=== PATIENT | male | born 1970 | race Caucasian/White ===

== ENCOUNTER → 2018-07-05 | Outpatient (CLI) | payer BC ==
--- NOTE | 2018-07-05 15:35 | RADIOLOGY REPORT (SQ) ---
EXAM DESCRIPTION: MRI RT LOWER JOINT WITHOUT COMPLETED DATE/TIME: 07/05/2018 3:03 pm REASON FOR STUDY: M25.561 PAIN IN RIGHT KNEE M25.561 PAIN IN RIGHT KNEE COMPARISON: None. TECHNIQUE: Rightknee images acquired and stored on PACS. Multiplanar images include fat sensitive s equences as T1, water sensitive sequences as FST2 or STIR, cartilage sensitive sequences as FSPD, and gradient echo sequences. LIMITATIONS: None. FINDINGS: JOINT AND BURSAE: Small effusion. BONE CORTEX AND MARROW: No alteration of signal to suggest marrow replacement. No worrisome bone lesi ons. No occult fracture. ACL: Intact. No degeneration or ganglion cyst. PCL: Intact. MCL: Intact. No periligamentous edema or fluid. LCL: Intact. No periligamentous edema or fluid. MEDIAL MENISCUS: Attenuated. Increased signal posterior horn extending to the articular surface in t he horizontal plane. Curvilinear meniscal fragment posteriorly near the root. This may be a bucket- handle variant tear. LATERAL MENISCUS: Intact. MEDIAL COMPARTMENT: Full-thickness fissuring of the medial condylar cartilage. Moderate osteophytes. LATERAL COMPARTMENT: Cartilage preserved. No bone bruises or reactive marrow edema. No osteophytes. PATELLA: Heterogeneous signal within thinned patellar cartilage with some surface blistering. Large osteophyte anterior trochlea. Intact retinaculum. EXTENSOR MECHANISM: Intact. Quadriceps and patella tendons normal. SOFT TISSUES: 2.6 x 2.6 x 4.5 cm Be's cyst. OTHER: No other significant finding. IMPRESSION: 1. Posterior horn medial meniscal tear, probably a bucket-handle variant, with a meniscal fragment ne ar the posterior root. 2. Moderate osteoarthritis medial compartment. 3. Less severe osteoarthritis patellofemoral compartment. 4. Be's cyst. TECHNICAL DOCUMENTATION: JOB ID: [id number] [employer]- All Rights Reserved Reading location - IP/workstation name: [facility]
== END ==
LOC: RAD 14:42
PROVIDERS: ATTEND Physician Assistant
DX: M25.561 Pain in right knee (principal); S83.211A Bucket-handle tear of medial meniscus, current injury, right knee, initial encounter; X58.XXXA Exposure to other specified factors, initial encounter